=== PATIENT | female | born 1990 | race Caucasian/White ===

== ENCOUNTER 2017-10-18 14:59 | Emergency (ER) | payer OTHER ==
[2017-10-18 15:08] VITALS: TEMP 36.6
[2017-10-18] MEDS ORDERED: FAMOTIDINE 20MG/5ML IV PUSH IV STA (15:18)
[2017-10-18] MEDS ORDERED: DiphenhydrAMINE HCL 50 MG/ML VIAL IV STA (15:18)
[2017-10-18] MEDS ORDERED: METHYLPREDNISOLONE 125 MG VIAL IV STA (15:18)
[2017-10-18 15:41] LABS: BASO % 0.1 %; BASO ABS # 0.01 K/uL (0-0.2); EOS % 1.3 %; EOS ABS # 0.09 K/uL (0-0.5); HEMATOCRIT 44.3 % (37-47); IG# 0.01 K/uL (0.00-0.02); LYMPH ABS # 2.53 K/uL (1.2-3.4); MEAN CELL VOLUME 93.7 fL (80-100); MEAN CORPUSCULAR HEMOGLOBIN 31.7 pg (25-34); MEAN CORPUSCULAR HGB CONC 33.9 g/dl (32-36); MEAN PLATELET VOLUME 10.5 fL (7.4-10.4); MONO % 5.7 %; MONO ABS # 0.39 K/uL (0.11-0.59); NEUT % 55.8 %; PLATELET COUNT 246 K/uL (130-400); WHITE BLOOD COUNT 6.83 K/uL (4.8-10.8)
[2017-10-18] MEDS ORDERED: ETONMIS VAGRING (15:52)
[2017-10-18] MEDS ORDERED: RMCI IV (15:52)
[2017-10-18 15:53] LABS: BLOOD UREA NITROGEN 9 mg/dl (7-18); CALCIUM 9.1 mg/dl (8.5-10.1); CARBON DIOXIDE 33 mmol/L (21-32); CREATININE 0.97 mg/dl (0.60-1.20); GLUCOSE 114 mg/dl (70-99); POTASSIUM 3.9 mmol/L (3.5-5.1); SODIUM 138 mmol/L (136-145)
[2017-10-18] MEDS ORDERED: EPINEPHRINE ADULT AUTO-INJECT 0.3 MG SYR IM STA (15:59)
[2017-10-18] MEDS ORDERED: PRED20TA PO (16:52)
--- NOTE | 2017-10-18 17:49 | EMERGENCY ROOM VISIT NOTE ---
History Report prepared by Jaylin: Santana Norwood Under the Supervision of: Dr. Jarocho Rod M.D. First contact with patient: 15:12 Chief Complaint: ALLERGIC REACTION Stated Complaint: ALERGIC REACTION, EYES PUFFY History of Present Illness The patient is a 27 year old female who presents to the Emergency Room with complaints of constant, severe, widespread hives across her entire body secondary to an unspecified allergic reaction beginning 1 hour ago. She also describes swelling to her face. The patient notes that she was waiting at the bus stop when her eyes began to swell and she developed hives across her entire body. The patient notes that she has experienced similar symptoms 2 to 3 times in the past two years, but reports that no past episodes have been as severe as her present episode. The patient notes tightness in her chest, but blames the tightness on congestion she was experiencing prior to the onset of her swelling. The patient reports that she is unsure what triggers this reaction. She notes eating Baklava prior to the onset of her symptoms, but states that she ate Baklava in the past without any issues. The patient denies taking any new medications. She reports having taken 3 adult tablets of Benadryl METHODS ANALYST in the ED today. The patient denies any known allergies but states that her cousin is allergic to strawberries and nuts. She denies seeing an bag patcher since her first episode of severe swelling 2 years ago. 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 She reports that she received her last shot of Remicade one and a half weeks ago. Source of History: patient Onset: 1 hour METHODS ANALYST in the ED. Position: head, other (Facial ) Quality: burning, other (swelling ) Timing: constant Modifying Factors (Relieving): other (none ) Note: Associated Symptoms: Chest tightness secondary to congestion, hives across entire body. Denies: Taking any new medications. Review of Systems See HPI for pertinent positives & negatives. A total of 10 systems reviewed and were otherwise negative. Past Medical & Surgical Medical Problems: (1) Allergic reaction (2) Allergic reaction Family History FHx: allergies Social History Smoking Status: Never Smoker Current/Historical Medications Scheduled Etonogestrel/Ethinyl Estradiol (Nuvaring), 1 EA VAGRING MONTHLY Infliximab (Remicade), 300 MG IV EVERY 8 WEEKS Prednisone (Prednisone), 3 TAB PO DAILY Allergies Coded Allergies: No Known Allergies (Unverified , 10/18/17) Physical Exam Vital Signs Date Time Temp Pulse Resp B/P (MAP) Pulse Ox O2 Delivery O2 Flow Rate FiO2 10/18/17 16:34 75 16 99/55 97 Room Air 10/18/17 15:36 85 10/18/17 15:18 99 Room Air 10/18/17 15:08 36.6 94 20 112/76 97 Room Air Physical Exam Constitutional: Vital signs reviewed. Eyes: Pupils are equal round reactive to light. Conjunctiva are noninjected. ENT: Pharynx is clear without erythema or exudate. Mucous membranes are moist. Diffuse facial swelling, especially over the periorbital region. No swelling to her tongue on uvula. Neck supple without meningeal signs. Respiratory: Clear to auscultation bilaterally. Breath sounds are equal bilaterally. No wheezing or stridor. Cardiovascular: Regular rate and rhythm. No rubs or gallops. GI: Soft, nondistended and nontender. Bowel sounds are present. Musculoskeletal: No peripheral edema. No lower extremity tenderness. Integumentary: Diffuse hives throughout thorax, extremities, and face. Neurological: The patient is awake and alert. No focal deficits. Psychiatric: Normal affect. Medical Decision & Procedures Laboratory Results 10/18/17 15:19 Red Blood Count 4.73, Mean Corpuscular Volume 93.7, Mean Corpuscular Hemoglobin 31.7, Mean Corpuscular Hemoglobin Concent 33.9, Mean Platelet Volume 10.5, Neutrophils (%) (Auto) 55.8, Lymphocytes (%) (Auto) 37.0, Monocytes (%) (Auto) 5.7, Eosinophils (%) (Auto) 1.3, Basophils (%) (Auto) 0.1, Neutrophils # (Auto) 3.80, Lymphocytes # (Auto) 2.53, Monocytes # (Auto) 0.39, Eosinophils # (Auto) 0.09, Basophils # (Auto) 0.01 10/18/17 15:19 Test 10/18/17 15:19 White Blood Count 6.83 K/uL (4.8-10.8) Red Blood Count 4.73 M/uL (4.2-5.4) Hemoglobin 15.0 g/dL (12.0-16.0) Hematocrit 44.3 % (37-47) Mean Corpuscular Volume 93.7 fL (80-100) Mean Corpuscular Hemoglobin 31.7 pg (25-34) Mean Corpuscular Hemoglobin Concent 33.9 g/dl (32-36) Platelet Count 246 K/uL (130-400) Mean Platelet Volume 10.5 fL (7.4-10.4) Neutrophils (%) (Auto) 55.8 % Lymphocytes (%) (Auto) 37.0 % Monocytes (%) (Auto) 5.7 % Eosinophils (%) (Auto) 1.3 % Basophils (%) (Auto) 0.1 % Neutrophils # (Auto) 3.80 K/uL (1.4-6.5) Lymphocytes # (Auto) 2.53 K/uL (1.2-3.4) Monocytes # (Auto) 0.39 K/uL (0.11-0.59) Eosinophils # (Auto) 0.09 K/uL (0-0.5) Basophils # (Auto) 0.01 K/uL (0-0.2) RDW Standard Deviation 45.0 fL (36.4-46.3) RDW Coefficient of Variation 13.0 % (11.5-14.5) Immature Granulocyte % (Auto) 0.1 % Immature Granulocyte # (Auto) 0.01 K/uL (0.00-0.02) Anion Gap 3.0 mmol/L (3-11) Estimated GFR () 93.4 Estimated GFR (Non- 80.6 BUN/Creatinine Ratio 9.3 (10-20) Calcium Level 9.1 mg/dl (8.5-10.1) Laboratory results as reviewed by me. Medications Administered Medications (Trade) Dose Ordered Sig/Audrey Route Start Time Stop Time Status Last Admin Dose Admin Methylprednisolone Sodium Succinate (Solu-Medrol IV) 125 mg NOW STAT IV 10/18/17 15:18 10/18/17 15:19 DC 10/18/17 15:22 125 MG Diphenhydramine HCl (Benadryl Inj) 25 mg NOW STAT IV 10/18/17 15:18 10/18/17 15:19 DC 10/18/17 15:22 25 MG Famotidine (Pepcid 20mg Iv Push) 20 mg ONE STAT IV 10/18/17 15:18 10/18/17 15:19 DC 10/18/17 15:22 20 MG ED Course 151: The patient was evaluated in room B3. A complete history and physical exam was performed. 1518: Ordered Famotidine 20mg IV, Benadryl Inj 25mg IV, and Solu-Medrol IV 125mg IV. 1559: Ordered Epinephrine 0.3mg IM 1600: I reevaluated the patient. Her facial swelling and hives are significantly improved. Discussed use and indications for EpiPen. 165: I reevaluated the patient. She is feeling better. Her swelling is mostly isolated around her eyes. Her mother will pick her up in about [address] back to [place]. 1750: Upon reevaluation, the patient appeared to have improvement of her symptoms. I discussed brett's findings with her. She verbalized agreement of the treatment plan. She was discharged home. 1734: I reassessed the patient. She has no complaints and is still waiting for her mother to pick her up. Medical Decision This is a 27-year-old female presents with facial swelling and rash. Differential diagnosis includes acute allergic reaction, idiopathic urticaria, complement deficiency, hereditary angioedema, drug reaction. I did perform a limited focused review of portions of the patient's old chart on the electronic medical record. The patient has had no recent pertinent visits to this hospital. I did evaluate the patient as noted above. IV access was established. The patient was placed on a continuous personnel monitor. I did treat the patient with IV Solu-Medrol and Benadryl and Pepcid. I did order and review the patient 's blood work as noted in the electronic medical record. I did reassess the patient multiple times. Her symptoms were steadily improving. She mostly now has swelling to her upper face and eyes. Her rashes significantly improved. She has no swelling to her tongue. She has no stridor or wheezing. She was given an EpiPen here and I did instruct her on how to use it and when to use it. She was advised to avoid common allergens such as nuts especially since she was eating a box of when it occurred. She was given a prescription for prednisone. She was advised to follow-up with an bag patcher for skin testing. She was discharged with her mother. I did review return instructions with her. Medication Reconcilliation Current Medication List: was personally reviewed by me Blood Pressure Screening Patient's blood pressure: Normal blood pressure the patient is normotensive Impression Primary Impression: Acute allergic reaction Scribe Attestation The scribe's documentation has been prepared under my direct and personally reviewed by me in its entirety. I confirm that the note above accurately reflects all work, treatment, procedures, and medical decision making performed by me. Departure Information Dispostion Home / Self-Care Prescriptions Prednisone (Prednisone) 20 Mg Tab 3 TAB PO DAILY, #12 TAB FOR 4 DAYS Prov: Jarocho Rod M.D. 10/18/17 Referrals No Doctor, Assigned (PCP) Forms HOME CARE DOCUMENTATION FORM, IMPORTANT VISIT INFORMATION Patient Instructions ED Allergic Reaction General Other, My [facility] Additional Instructions You have been examined and treated today on an emergency basis only. This is not a substitute for, or an effort to provide, complete comprehensive medical care. It is impossible to recognize and treat all injuries or illnesses in a single emergency department visit. It is therefore important that you follow up closely with your physician. Call as soon as possible for an appointment. Return for worsening symptoms or if you develop fever, difficulty breathing, lightheadedness or any other concerning symptoms. Because of your allergic reaction is unclear at this time. Avoid common allergens such as nuts until cleared by an bag patcher. Problem Qualifiers Primary Impression: Acute allergic reaction Encounter type: initial encounter Qualified Codes: T78.40XA - Allergy, unspecified, initial encounter
[2017-10-18] MEDS ORDERED: EPINEPHRINE ADULT AUTO-INJECT 0.3 MG SYR ONE (18:20)
[2017-10-18 18:26] VITALS: BP 126/82; PULSE 88; O2SAT 96
== END 2017-10-18 18:28 | disposition home or self-care (01) ==
LOC: C.EDB 15:00
DX: T78.40XA Allergy, unspecified, initial encounter (principal); R22.0 Localized swelling, mass and lump, head; L50.9 Urticaria, unspecified; K50.90 Crohn's disease, unspecified, without complications; Z79.899 Other long term (current) drug therapy; Z79.3 Long term (current) use of hormonal contraceptives